=== PATIENT | female | born 1945 | race Caucasian/White ===

== ENCOUNTER 2020-08-27 20:01 | Emergency (ER) | payer MEDICARE ==
[2020-08-27 20:27] VITALS: RESP 18; TEMP 98.7
--- NOTE | 2020-08-27 21:21 | XR ---
EXAMINATION TYPE: XR hand complete RT DATE OF EXAM: 08/27/2020 COMPARISON: NONE HISTORY: Pain TECHNIQUE: 3 views FINDINGS: Metacarpals are intact. I see no fracture nor dislocation. There is some narrowing of the I P joint spaces. There are no erosions. IMPRESSION: Osteoarthritic changes. No evidence of fracture of the thumb.
[2020-08-27 21:33] VITALS: BP 165/71; PULSE 82
[2020-08-27] MEDS ORDERED: ACETAMINOPHEN TAB 325 MG TAB PO STA (21:43)
--- NOTE | 2020-08-27 21:47 | ED ---
Upper Extremity HPI - General Chief Complaint: Extremity Injury, Upper Stated Complaint: Right Thumb Pain Time Seen by Provider: 08/27/20 21:27 Source: patient Mode of arrival: ambulatory Limitations: no limitations - History of Present Illness Initial Comments: This patient is 75-year-old woman who states that she was lifting a garbage bag on Friday and it felt like something popped in her right thumb. Since that time she has had swelling and pain. Pain is worse when she attempts to use the thumb. She denies numbness. MD Complaint: Injury to:: right, finger (Thumb) Onset/Timin -: days(s) Other Extremity Injury: Fingers: Right Other Injuries: none Handedness: right Place: home Improves With: rest Worsens With: movement of extremity Context: other Associated Symptoms: weakness, heard/felt popping sensat - Related Data Allergies Allergy/AdvReac Type Severity Reaction Status Date / Time narcotics Allergy Unknown Uncoded 08/27/20 20:24 steroids Allergy Unknown Uncoded 08/27/20 20:24 Review of Systems ROS Statement: Those systems with pertinent positive or pertinent negative responses have been documented in the HPI. ROS Other: All systems not noted in ROS Statement are negative. Constitutional: Denies: fever Musculoskeletal: Reports: as per HPI, joint swelling, arthralgia Skin: Denies: lesions Neurological: Denies: weakness, numbness Past Medical History Past Medical History: No Reported History History of Any Multi-Drug Resistant Organisms: None Reported Past Surgical History: Tubal Ligation Past Psychological History: No Psychological Hx Reported Smoking Status: Never smoker Past Alcohol Use History: None Reported Past Drug Use History: None Reported General Exam Limitations: no limitations General appearance: alert, in no apparent distress Right Elbow exam: Present: normal inspection, full ROM. Absent: tenderness Forearm Wrist exam: Present: normal inspection, full ROM. Absent: tenderness, swelling, abrasion Hand Wrist exam: Present: tenderness, swelling (Right thumb to the dorsoradial aspect of the MCP joint). Absent: laceration, ecchymosis, crepitus, erythema, amputation, nail avulsion, subungual hematoma Neuro motor exam: Present: wrist extension intact, thumb IP flexion intact, thumb adduction intact, fingers 2-5 abduction intact. Absent: thumb opposition intact (Patient refuses secondary to pain) Neurosensory exam: Present: 2-point discrimination, radial nerve intact, ulnar nerve intact, median nerve intact Vascular: Present: normal capillary refill. Absent: vascular compromise Neurological exam: Absent: motor sensory deficit Skin exam: Present: warm, dry, intact, normal color. Absent: rash Course Vital Signs 08/27/20 08/27/20 20:24 21:32 Temperature 98.7 F Pulse Rate 91 82 Respiratory 18 18 Rate Blood Pressure 171/75 165/71 O2 Sat by Pulse 98 100 Oximetry Procedures - Orthopedic Splinting/Casting Injury #1 Side: right Upper Extremity Injury Location: hand Upper Extremity Immobilizer: thumb spica Disposition Clinical Impression: Sprain of hand, thumb, right Disposition: HOME SELF-CARE Condition: Good Instructions (If sedation given, give patient instructions): Hand Sprain (ED) Is patient prescribed a controlled substance at d/c from ED?: No Referrals: None,Stated [REFERRING] - 1-2 days Gumaro Boothe DO [Doctor of Osteopathic Medicine] - 1-2 days
== END 2020-08-27 22:51 | disposition home or self-care (01) ==
LOC: EC 20:01
DX: S63.601A Unspecified sprain of right thumb, initial encounter (principal); Z88.5 Allergy status to narcotic agent; Z88.8 Allergy status to other drugs, medicaments and biological substances; X50.0XXA Overexertion from strenuous movement or load, initial encounter; Y93.89 Activity, other specified
CPT/HCPCS: 99283